=== PATIENT | female | born 1950 | race Caucasian/White ===

== ENCOUNTER → 2017-04-09 | Outpatient (CLI) | payer OTHER ==
[2017-04-09 17:41] LABS: BLOOD UREA NITROGEN 15 mg/dl (7-18); CREATININE 0.87 mg/dl (0.60-1.20)
== END | disposition home or self-care (01) ==
LOC: C.LABPBG 15:39
PROVIDERS: ATTEND Psychiatry & Neurology Neurology
DX: Z00.00 Encounter for general adult medical examination without abnormal findings (principal)

== ENCOUNTER → 2017-04-13 | Outpatient (CLI) | payer OTHER ==
[~2017-04-13] MED LIST: GADAVIST IV PRN
--- NOTE | 2017-04-13 15:02 | DIAGNOSTIC IMAGING REPORT ---
LEFT LOWER EXTREMITY VENOUS DOPPLER CLINICAL HISTORY: Left limb pain and swelling. COMPARISON STUDY: No previous studies for comparison. TECHNIQUE: Sonography of the deep venous system of the left lower extremity was performed. Compression and augmentation were evaluated. FINDINGS: The left common femoral, superficial femoral and popliteal veins were compressible. Augmentation was normal. Flow was shown within the deep calf vessels. IMPRESSION: No evidence of deep venous thrombus within the left lower extremity. Electronically signed by: Skip Crowley M.D. 04/13/2017 3:01 PM Dictated Date/Time: 04/13/2017 2:59 PM
--- NOTE | 2017-04-13 16:03 | DIAGNOSTIC IMAGING REPORT ---
MRI OF THE BRAIN COMBO CLINICAL HISTORY: Gait instability. Loss of balance. COMPARISON STUDY: No priors. TECHNIQUE: MRI of the brain was performed utilizing various T1 and T2-weighted sequences in the axial, sagittal, and coronal planes. Contrast-enhanced sequences were acquired following the administration of 8.5 cc of Gadavist. FINDINGS: Brain parenchyma: There is mild subcortical and periventricular microangiopathic disease. There is no hemorrhage or mass effect. There is no restricted diffusion to suggest acute ischemia. No enhancing mass lesion is identified on the postcontrast images. Azar-white matter differentiation is preserved. No extra-axial fluid collection is seen. The cerebellar tonsils are normal in configuration. Ventricles, sulci, and cisterns: Normal in configuration. Pituitary and sella: Partially empty sella is incidentally noted. Intracranial vasculature: Normal flow voids are maintained at the skull base. Orbits: The bony orbits are grossly intact. Orbital contents are normal in appearance. Sinuses and mastoids: Clear. Calvarium: Unremarkable. Cervical cord: Partially visualized cervical spinal cord is normal in morphology and signal intensity. IMPRESSION: No acute intracranial abnormality. Electronically signed by: Salbador Harris M.D. 04/13/2017 4:01 PM Dictated Date/Time: 04/13/2017 3:59 PM
== END | disposition home or self-care (01) ==
LOC: C.ULTR 14:24
PROVIDERS: ATTEND Family Medicine
DX: R27.0 Ataxia, unspecified (principal); M79.609 Pain in unspecified limb; M79.89 Other specified soft tissue disorders

== ENCOUNTER → 2017-05-07 | Outpatient (CLI) | payer OTHER ==
[2017-05-07 12:32] LABS: HEMATOCRIT 38.1 % (37-47); HEMOGLOBIN 12.6 g/dL (12.0-16.0); MEAN CELL VOLUME 93.2 fL (80-100); MEAN CORPUSCULAR HEMOGLOBIN 30.8 pg (25-34); MEAN CORPUSCULAR HGB CONC 33.1 g/dl (32-36); MEAN PLATELET VOLUME 9.5 fL (7.4-10.4); PLATELET COUNT 228 K/uL (130-400); RED CELL DISTRIBUTION WIDTH CV 14.4 % (11.5-14.5); RED CELL DISTRIBUTION WIDTH SD 48.9 fL (36.4-46.3); WHITE BLOOD COUNT 13.53 K/uL (4.8-10.8)
[2017-05-07 13:02] LABS: HEMOGLOBIN A1C 5.5 % (4.5-5.6)
[2017-05-07 13:16] LABS: ALBUMIN 3.8 gm/dl (3.4-5.0); ALT/SGPT 18 U/L (12-78); AST/SGOT 14 U/L (15-37); BLOOD UREA NITROGEN 13 mg/dl (7-18); CARBON DIOXIDE 27 mmol/L (21-32); GLUCOSE 82 mg/dl (70-99); POTASSIUM 3.6 mmol/L (3.5-5.1); SODIUM 141 mmol/L (136-145)
[2017-05-07 13:20] LABS: BASO % 0.2 %; BASO ABS # 0.03 K/uL (0-0.2); EOS % 2.7 %; EOS ABS # 0.36 K/uL (0-0.5); IG# 0.02 K/uL (0.00-0.02); LYMPH % 59.1 %; MONO % 6.1 %; MONO ABS # 0.82 K/uL (0.11-0.59); NEUT % 31.8 %
[2017-05-07 13:27] LABS: ALKALINE PHOSPHATASE 64 U/L (45-117); CHOLESTEROL 197 mg/dl (0-200); LDL CHOLESTEROL CALCULATED 126 mg/dl; TOTAL PROTEIN 7.2 gm/dl (6.4-8.2)
== END | disposition home or self-care (01) ==
LOC: C.LABPBG 10:13
PROVIDERS: ATTEND Family Medicine
DX: Z13.220 Encounter for screening for lipoid disorders (principal); M79.89 Other specified soft tissue disorders; M79.609 Pain in unspecified limb; Z83.3 Family history of diabetes mellitus

== ENCOUNTER → 2017-05-20 | Outpatient (CLI) | payer OTHER ==
[~2017-05-20] MED LIST changes: -GADAVIST IV PRN; +OPTIRAY 320 IV PRN
--- NOTE | 2017-05-20 14:36 | DIAGNOSTIC IMAGING REPORT ---
CT SCAN OF THE ABDOMEN AND PELVIS WITH IV CONTRAST CLINICAL HISTORY: B-cell lymphoma. COMPARISON STUDY: No priors. TECHNIQUE: Following the IV administration of 94 cc of Optiray 320, CT scan of the abdomen and pelvis is performed from the lung bases to the proximal femora. Images are reviewed in the axial, sagittal, and coronal planes. IV contrast was administered without complication. A dose lowering technique was utilized adhering to the principles of ALARA. CT DOSE: 944.74 mGycm FINDINGS: Lung bases: The heart is normal in size and without pericardial effusion. A large calcified granuloma is seen in the right lower lobe. The lung bases are otherwise clear. There are calcification containing hilar nodes. Liver: The contrast-enhanced liver is normal in size, contour, and attenuation. There is central intrahepatic biliary ductal dilatation. The hepatic veins and portal veins are patent. Gallbladder: The gallbladder is normal in appearance. The common bile duct appears normal in caliber. Spleen: Normal in size and attenuation, measuring 12.0 cm and length. There is a small calcified splenic granuloma. Pancreas: Unremarkable. Adrenal glands: A 2.5 cm low-attenuation left adrenal nodule likely represents an adenoma but cannot be definitively characterized due to the presence of IV contrast. The right adrenal gland is normal. Kidneys: The contrast enhanced kidneys are normal in size and without hydronephrosis. The kidneys enhance symmetrically. A 1.4 cm cyst is noted in the right kidney. Abdominal vasculature: The abdominal aorta is normal in course and caliber noting moderate to advanced atherosclerotic calcification. Bowel: There are scattered colonic diverticula without CT evidence of acute diverticulitis. Mild colonic fecal retention is observed. No bowel obstruction is seen. The appendix is not identified and reported surgically absent. Peritoneum: There is no intraperitoneal free air or abdominal ascites. Lymphadenopathy: No pathologically enlarged lymph nodes are identified in the abdomen or pelvis. Pelvic viscera: The bladder, uterus, and adnexa are normal as visualized. Skeletal structures: The skeletal structures are osteopenic. No lytic or blastic lesions are seen. IMPRESSION: 1. There is no lymphadenopathy identified in the abdomen or pelvis. 2. The spleen is normal in size. 3. There are no acute infectious or inflammatory findings in the abdomen or pelvis. 4. There is mild intrahepatic biliary ductal dilatation. The common bile duct appears normal in caliber. This findings is of indeterminate etiology and significance. Correlation with serum bilirubin levels is recommended. 5. Additional findings as above. Electronically signed by: Salbador Harris M.D. 05/20/2017 2:35 PM Dictated Date/Time: 05/20/2017 2:29 PM
== END | disposition home or self-care (01) ==
LOC: C.CTS 14:10
PROVIDERS: ATTEND Family Medicine
DX: C85.10 Unspecified B-cell lymphoma, unspecified site (principal)

== ENCOUNTER → 2017-05-21 | Outpatient (CLI) | payer OTHER ==
[2017-05-24 15:47] LABS: ANA SCREEN TC 249X NEGATIVE (NEGATIVE)
== END | disposition home or self-care (01) ==
LOC: C.LABPBG 12:56
PROVIDERS: ATTEND Family Medicine
DX: R27.8 Other lack of coordination (principal); M25.649 Stiffness of unspecified hand, not elsewhere classified; M79.643 Pain in unspecified hand

== ENCOUNTER → 2017-07-26 | Outpatient (CLI) | payer OTHER, MEDICARE ==
[~2017-07-26] MED LIST changes: +PATIENT'S ALLERGY INFO NEEDS ENTERED STA
--- NOTE | 2017-07-26 08:53 | DIAGNOSTIC IMAGING REPORT ---
CT OF THE NECK WITH CONTRAST CLINICAL HISTORY: Chronic lymphocytic leukemia. COMPARISON STUDY: No previous studies for comparison. TECHNIQUE: Axial images of the neck were obtained following intravenous injection of 93 cc of Optiray 320 IV. FINDINGS: Mastoid air cells are clear. Visualized portions of the sinuses are clear. The parotid and submandibular glands are normal. Epiglottis is normal. No mucosal lesion is identified although these may be occult by CT. No enlarged cervical lymph nodes are present. There is no mass within the neck. No suspicious osseous lesions are present. The chest CT will be reported separately. IMPRESSION: 1. No cervical lymphadenopathy. 2. No acute process within the neck by CT. Electronically signed by: Skip Crowley M.D. 07/26/2017 8:52 AM Dictated Date/Time: 07/26/2017 8:47 AM
--- NOTE | 2017-07-26 09:01 | DIAGNOSTIC IMAGING REPORT ---
CT OF THE CHEST WITH IV CONTRAST CLINICAL HISTORY: Chronic lymphocytic leukemia. COMPARISON STUDY: No previous studies for comparison. TECHNIQUE: Following IV administration of 93 mL of Optiray-320, helical axial images of the chest were obtained. Sagittal and coronal reconstructions were viewed as well as maximal intensity projections on an independent 3-D workstation. A dose lowering technique was utilized adhering to the principles of ALARA. CT DOSE: 867.74 mGy.cm FINDINGS: Please note that the CT of the neck will be reported separately. No enlarged axillary, mediastinal or hilar lymph nodes are present. There are calcified mediastinal and right hilar lymph nodes. The heart is mildly enlarged. There is no pericardial effusion. There is moderate plaque of the thoracic aorta. No pneumothorax or pleural effusion is noted. A few calcified granulomas within the lungs are noted. Note is made of a 2.2 cm subpleural groundglass opacity within the right lower lobe shown on image 226 of 306. Mild left lower lobe ground glass opacity favors atelectasis. Central airways are patent. There are no suspicious osseous lesions. The spleen is not enlarged. There are calcified granulomas within the spleen. Mild biliary ductal dilatation is unchanged since CT of May 20, 2017. Left adrenal gland nodularity is unchanged. IMPRESSION: 1. No thoracic lymphadenopathy. 2. 2.2 cm subpleural groundglass opacity within the right lower lobe. This likely reflects a mild infectious process or atelectasis. A follow-up chest CT in 6 months to ensure resolution is recommended. Electronically signed by: Skip Crowley M.D. 07/26/2017 9:00 AM Dictated Date/Time: 07/26/2017 8:46 AM
== END | disposition home or self-care (01) ==
LOC: C.CTS 08:12
PROVIDERS: ATTEND Internal Medicine Hematology & Oncology
DX: R91.8 Other nonspecific abnormal finding of lung field (principal); C91.10 Chronic lymphocytic leukemia of B-cell type not having achieved remission